=== PATIENT | male | born 1960 | race Caucasian/White ===

== ENCOUNTER 2017-10-24 20:49 | Emergency (ER) | payer OTHER ==
[~2017-10-24] VITALS: Ht 170.2 cm; Wt 86.2 kg
[2017-10-24 22:40] VITALS: BP 142/92
== END 2017-10-24 23:32 | disposition home or self-care (01) ==
LOC: ER 20:49
DX: M79.671 Pain in right foot (principal)
CPT/HCPCS: 73630; 99284; L3260

== ENCOUNTER 2017-11-13 18:54 | Emergency (ER) | payer OTHER ==
[~2017-11-13] VITALS: Ht 170.2 cm; Wt 86.2 kg
[2017-11-13 19:07] VITALS: BP 146/82
== END 2017-11-13 21:54 | disposition home or self-care (01) ==
LOC: ER 18:54
DX: M25.461 Effusion, right knee (principal)
CPT/HCPCS: 29505; 73560